=== PATIENT | female | born 1995 | race Hispanic/Latino ===

== ENCOUNTER 2019-11-06 19:31 | Emergency (ER) | payer SELFPAY ==
[2019-11-06 22:07] LABS: Urine Blood NEGATIVE (NEG); Urine Glucose NEGATIVE (NEG); Urine Protein NEGATIVE (NEG); Urine Specific Gravity <1.005 (1.005-1.030)
--- NOTE | 2019-11-06 22:28 | ER ---
Nurse's Notes [facility] Name: Jessica Wiseman Age: 24 yrs Sex: Female : 1995 Arrival Date: 11/06/2019 Time: 19:34 Bed 30 Private MD: Diagnosis: Acute pharyngitis;Dysuria Presentation: 11/06 20:06 Presenting complaint: Patient states: she was seen at the clinic today for fever and aa1 was told that she had a positive test and is estimated about 4 weeks . States she also was told her BP was high and she has been having pain with urination x 8 days as well. Transition of care: patient was not received from another setting of care. Onset of symptoms was October 30, 2019. Risk Assessment: Do you want to hurt yourself or someone else? Patient reports no desire to harm self or others. Initial Sepsis Screen: Does the patient meet any 2 criteria? No. Patient's initial sepsis screen is negative. Does the patient have a suspected source of infection? Yes: Dysuria/Frequency/Urgency/UTI. Care prior to arrival: None. 20:06 Method Of Arrival: Ambulatory aa1 20:06 Acuity: MUSA 4 aa1 Triage Assessment: 20:11 General: Appears in no apparent distress. comfortable, Behavior is calm, cooperative, aa1 appropriate for age. Pain: Denies pain. Historical: - Allergies: 20:11 No Known Allergies; aa1 - Home Meds: 20:11 None [Active]; aa1 - PMHx: 20:11 None; aa1 - PSHx: 20:11 None; aa1 - Immunization history:: Adult Immunizations up to date. - Social history:: Smoking status: Patient/guardian denies using tobacco. - Ebola Screening: : No symptoms or risks identified at this time. Screenin:00 Abuse screen: Denies threats or abuse. Nutritional screening: No deficits noted. tr5 Tuberculosis screening: No symptoms or risk factors identified. Fall Risk None identified. Assessment: 21:00 General: Appears in no apparent distress. Behavior is calm, cooperative, appropriate tr5 for age. Pain: Denies pain. Neuro: Level of Consciousness is awake, alert, obeys commands, Oriented to person, place, time, [place] Hand are equal bilaterally Moves all extremities. Cardiovascular: Heart tones present Capillary refill < 3 seconds. Respiratory: Airway is patent Respiratory effort is even, unlabored, Respiratory pattern is regular, symmetrical. GI: No signs and/or symptoms were reported involving the gastrointestinal system. : Reports burning with urination. EENT: No signs and/or symptoms were reported regarding the EENT system. Derm: No signs and/or symptoms reported regarding the dermatologic system. Musculoskeletal: No signs and/or symptoms reported regarding the musculoskeletal system. Vital Signs: 20:11 BP 131 / 88; Pulse 97; Resp 16; Temp 98.3; Pulse Ox 100% on R/A; Weight 63.5 kg; Height aa1 5 ft. 3 in. (160.02 cm); Pain 0/10; 20:11 Body Mass Index 24.80 (63.50 kg, 160.02 cm) aa1 ED Course: 19:34 Patient arrived in ED. cf2 19:55 Dustin Holden PA is PHCP. [facility] 19:55 Jaylan Lopez MD is Attending Physician. [facility] 20:09 Triage completed. aa1 20:11 Arm band placed on right wrist. aa1 20:30 Paul Dow RN is Primary Nurse. tr5 21:00 Bed in low position. Call light in reach. Side rails up X 1. tr5 22:06 PHCP role handed off by Dustin Holden PA la 22:06 Dioni Lopez [facility]C [facility] la1 22:57 No provider procedures requiring assistance completed. Patient did not have IV access tr5 during this emergency room visit. Administered Medications: No medications were administered Outcome: 22:27 Discharge ordered by . la1 22:57 Discharged to home ambulatory. tr5 22:57 Condition: stable 22:57 Discharge instructions given to patient, Instructed on discharge instructions, follow up and referral plans. Demonstrated understanding of instructions, follow-up care. 23:11 Patient left the ED. tr5 Signatures: Anni Durand RN RN aa1 Dustin Holden PA PA Dioni Warren FNP-C FNP-[facility] HospitalPaul Mcclure RN RN tr5 Elli Anderson cf2
--- NOTE | 2019-11-06 22:29 | EDPHYS ---
Physician Documentation [facility] Name: Jessica Wiseman Age: 24 yrs Sex: Female : 1995 Arrival Date: 11/06/2019 Time: 19:34 Bed 30 Private MD: ED Physician Jaylan Lopez HPI: 11/06 20:45 This 24 yrs old Female presents to ER via Ambulatory with complaints of High jmm Blood Pressure, Fever. 20:45 The patient or guardian reports cough. Onset: The symptoms/episode began/occurred jmm gradually, 1 week(s) ago. Modifying factors: The symptoms are alleviated by nothing. the symptoms are aggravated by nothing. Associated signs and symptoms: Pertinent positives: sore throat, Pertinent negatives:. This is a 24 year old female with no chronic medical conditions that presents to the ED. Patient had a positive home test and went to clinic for confirmation. Patient had a temp of 99.4 and was advised to go to the ED for further evaluation for flu. Patient states having cough, sore throat for the past week. Patient also complains of painful urination. Denies vomiting or diarrhea. LMP 10/07/2019. Historical: - Allergies: 20:11 No Known Allergies; aa1 - Home Meds: 20:11 None [Active]; aa1 - PMHx: 20:11 None; aa1 - PSHx: 20:11 None; aa1 - Immunization history:: Adult Immunizations up to date. - Social history:: Smoking status: Patient/guardian denies using tobacco. - Ebola Screening: : No symptoms or risks identified at this time. ROS: 20:45 Constitutional: Negative for fever, chills, and weight loss, Cardiovascular: Negative jmm for chest pain, palpitations, and edema. 20:45 Abdomen/GI: Negative for abdominal pain, nausea, vomiting, diarrhea, and constipation, Back: Negative for injury and pain. 20:45 ENT: Positive for sore throat. 20:45 Respiratory: Positive for cough. 20:45 : Positive for urinary symptoms. 20:45 All other systems are negative. Exam: 20:45 Constitutional: This is a well developed, well nourished patient who is awake, alert, jmm and in no acute distress. Head/Face: atraumatic. Eyes: EOMI, no conjunctival erythema appreciated 20:45 Neck: Trachea midline, Supple Chest/axilla: Normal chest wall appearance and motion. 20:45 Respiratory: Normal respirations, no respiratory distress appreciated 20:45 ENT: TM's: are normal, Posterior pharynx: erythema, that is moderate. 20:45 Cardiovascular: Rate: normal, Rhythm: regular, Pulses: no pulse deficits are appreciated. 20:45 Respiratory: the patient does not display signs of respiratory distress, Respirations: normal, Breath sounds: are clear throughout. 20:45 Abdomen/GI: Inspection: abdomen appears normal, Bowel sounds: normal, Palpation: abdomen is soft and non-tender, in all quadrants. 20:45 Back: ROM is normal. 20:45 Musculoskeletal/extremity: ROM: intact in all extremities. 20:45 Skin: Appearance: Color: normal in color. 20:45 Neuro: Orientation: is normal, Mentation: is normal, Memory: is normal. 20:45 Psych: Behavior/mood is pleasant, cooperative. Vital Signs: 20:11 BP 131 / 88; Pulse 97; Resp 16; Temp 98.3; Pulse Ox 100% on R/A; Weight 63.5 kg; Height aa1 5 ft. 3 in. (160.02 cm); Pain 0/10; 20:11 Body Mass Index 24.80 (63.50 kg, 160.02 cm) aa1 MDM: 20:23 Patient medically screened. [facility] 21:44 Data reviewed: vital signs, nurses notes. [facility] 11/06 20:45 Order name: Flu; Complete Time: 22:27 [facility] 11/06 20:45 Order name: Strep; Complete Time: 22:27 [facility] 11/06 20:04 Order name: Urine Dipstick-Ancillary (obtain specimen); Complete Time: 21:25 [facility] 11/06 21:28 Order name: Urine Dipstick--Ancillary (enter results); Complete Time: 22:27 [facility] 11/06 21:28 Order name: Urine --Ancillary (enter results); Complete Time: 22:27 [facility] 11/06 22:28 Order name: Throat Culture [facility] 11/06 20:04 Order name: Urine Test (obtain specimen); Complete Time: 21:24 [facility] Administered Medications: No medications were administered Disposition: 11/07 04:51 Co-signature as Attending Physician, Jaylan Lopez MD I agree with the assessment and tw4 plan of care. Disposition: 11/06/19 22:27 Discharged to Home. Impression: Acute pharyngitis, Dysuria. - Condition is Stable. - Discharge Instructions: Dysuria, Pharyngitis. - Prescriptions for Augmentin 875- 125 mg Oral Tablet - take 1 tablet by ORAL route every 12 hours for 10 days; 20 tablet. - Medication Reconciliation Form, Thank You Letter, Antibiotic Education form. - Follow up: Private Physician; When: 2 - 3 days; Reason: Recheck today's complaints, Continuance of care, Re-evaluation by your physician. - Problem is new. - Symptoms are unchanged. Signatures: Dispatcher [employer] Anni Hernandez, RN RN aa1 Dustin Holden PA PA jmm Attema, Lee, DISPENSING LEAD-C DISPENSING LEAD-Cla1 Jaylan Lopez MD MD tw4 Paul Dow RN RN tr5 Corrections: (The following items were deleted from the chart) 11/06 23:11 22:27 11/06/2019 22:27 Discharged to Home. Impression: Acute pharyngitis; Dysuria. tr5 Condition is Stable. Discharge Instructions: Dysuria, Pharyngitis. Prescriptions for Augmentin 875-125 mg Oral Tablet - take 1 tablet by ORAL route every 12 hours for 10 days; 20 tablet. and Forms are Medication Reconciliation Form, Thank You Letter, Antibiotic Education, Prescription Opioid Use. Follow up: Private Physician; When: 2 - 3 days; Reason: Recheck today's complaints, Continuance of care, Re-evaluation by your physician. Problem is new. Symptoms are unchanged. la1
[2019-11-07 01:50] VITALS: BP 131/88; TEMP 98.3; O2SAT 100
== END 2019-11-06 23:11 | disposition home or self-care (01) ==
LOC: ER 19:31 → EDBD 19:31 → ER 23:11
DX: J02.9 Acute pharyngitis, unspecified (principal); R30.0 Dysuria
CPT/HCPCS: 81003; 81025; 87070; 87081; 87804; 99281

== ENCOUNTER 2020-07-03 03:34 | Inpatient (IN) | payer SELFPAY ==
[2020-07-03] MEDS ORDERED: CARBOPROST TROME 250 MCG/ML IM PRN (05:20)
[2020-07-03] MEDS ORDERED: METHYLERGONOVINE 0.2MG/ML AMP IM PRN (05:20)
[2020-07-03] MEDS ORDERED: BUTORPHANOL 1 MG/ML INJ IV PRN (05:20)
[2020-07-03] MEDS ORDERED: PROMETHAZINE INJ 25 MG/ML AMP IM PRN (05:20)
[2020-07-03] MEDS ORDERED: Ringers Lactate 1,000 ML IV PRN (05:20)
[2020-07-03 05:57] VITALS: BMI 28.3
[2020-07-03] MEDS ORDERED: Ringers Lactate 1,000 ML IV SCH (06:00)
[2020-07-03] MEDS ORDERED: OXYTOCIN/LR 20 UNIT/1,000 ML BAG IV SCH ×2 (06:00→17:00)
[2020-07-03 06:16] LABS: Urine Appearance CLEAR; Urine Bilirubin NEGATIVE (NEG); Urine Blood 1+ (NEG); Urine Color YELLOW; Urine Glucose NEGATIVE (NEG); Urine Protein NEGATIVE (NEG); Urine Urobilinogen 0.2 mg/dL (0.2-1.0)
[2020-07-03 06:18] LABS: Absolute Lymphocytes (CBC) 1.7 K/uL (0.7-4.9); Basophils % 0.3 % (0-1.3); Hematocrit 41.3 % (36.0-45.0); Lymphocytes % 14.9 % (15.3-44.8); MPV 9.6 fL (7.6-11.3); RBC Red Blood Cell Count 4.68 M/uL (3.86-4.86)
[2020-07-03 06:23] LABS: Urine Microscopic Reflex ORDER UMIC
[2020-07-03 06:45] LABS: Urine Bacteria 20-50 /HPF (<20); Urine Culture Reflex Order REFLEXED; Urine RBC <5 /HPF (NONE SEEN)
[2020-07-03] MEDS ORDERED: FENTANYL CITR 100 MCG/2 ML IV ONE (08:21)
[2020-07-03] MEDS ORDERED: FENTANYL/BUPIVACAINE/NS/PF 200 MCG/100 ML BAG EP PRN (08:21)
[2020-07-03] MEDS ORDERED: BUPIVACAINE 0.25% PF 10 ML VIAL IV PRN (08:21)
[2020-07-03] MEDS ORDERED: Ringers Lactate 1,000 ML IV ONE ×2 (09:49→11:15)
[2020-07-03] MEDS ORDERED: LIDOCAINE 1% MPF 30 ML VIAL ONE (14:12)
[2020-07-03] MEDS ORDERED: MEPERIDINE HCL 25 MG/ML SYR ONE (16:23)
[2020-07-03] MEDS ORDERED: ACETAMINOPHEN 500 MG TAB PO PRN (16:30)
[2020-07-03] MEDS ORDERED: DOCUSATE NA/SENNA CONC 1 TAB PO PRN (16:30)
[2020-07-03] MEDS ORDERED: IBUPROFEN 200 MG TAB PO PRN (16:30)
[2020-07-03] MEDS ORDERED: Oxycodone HCl/Acetaminophen 1 TAB TAB PO PRN ×2 (16:30)
[2020-07-03] MEDS ORDERED: BISACODYL 10 MG RECTAL SUPP RECT PRN (16:30)
[2020-07-03] MEDS ORDERED: DIPHENHYDRAMINE 25 MG TAB/CAP PO PRN (16:30)
--- NOTE | 2020-07-04 01:26 | OP ---
Surgeon: Avtar Leach MD A 24-year-old primigravida, 38 weeks 5 days, came in early labor. Light Pitocin augmentation during the labor. Stadol 1 mg IV, Phenergan 25 mg IM, followed by epidural anesthesia at approximately 3 to 3.5 cm. Second stage of approximately 1 hour. Spontaneous vaginal delivery of an estimated 6 pound s male , Apgars 9 and 9. Second-degree laceration repaired with 2-0 chromic under local infilt ration, although epidural was still apparently effective. Schultze delivery of the placenta, inspect ed and noted to be intact and normal. 350 cc blood loss. Rh positive, immune to rubella. Negative beta-strep screen. Final Diagnoses: Term intrauterine at 38 weeks 5 days, spontaneous labor, vaginal delivery , epidural anesthesia. DAMIAN/CANDELARIA Voice ID: [id number] Report ID: [id number]
[2020-07-04 17:32] VITALS: BP 121/73; TEMP 96.7
[2020-07-04] MEDS ORDERED: Tdap (Diph,Pertuss(Acell),Tet Vac) 0.5 ML SYR IMVAC ONE (17:55)
--- NOTE | 2020-07-05 03:26 | DS ---
Hospital Course: Jessica Lyn is a 24-year-old primigravida, 38 weeks 5 days, came in an active lab or, delivered a 6 pounds 11 ounces male infant, Apgars 9 and 9. After approximately [address] age, had epidural anesthesia, but local infiltration for repair of second-degree laceration, 2-0 methods study analyst vincent. Schultze delivery of the placenta, which inspected and noted to be intact and normal. 350 mL b lood loss or less. Rh positive. Immune to Rubella. Negative beta strep screen. Offered Tdap durin g the . No post epidural problems. The patient will be dismissed this afternoon to report back to my office in 6 weeks for followup. To report any temperature elevation of 100 degrees or gre ater, severe pain, heavy bleeding, or any other type of abnormalities. Dismissed with tramadol for a nalgesia, although she may elect to use Motrin instead. Final Diagnoses: Term intrauterine at 38 weeks 5 days, spontaneous delivery, epidural anes thesia. DAMIAN/CANDELARIA Voice ID: [id number] Report ID: [id number]
[2020-07-05 05:54] LABS: RPR (Rapid Plasma Reagin) NON-REACT (NON-REACT)
--- NOTE | 2020-07-05 15:19 | CON ---
A 24-year-old, primigravida, 38 weeks 4 days, rolanda every 2 to 4 minutes. This made no change in 2 hours. Cervix is fingertip. Baby is vertex. Vitals are all normal. She has an appointment at 10 o'clock in my office. We have decided to send her home. When she will come back, contractions i ntensify, rupture of membranes, or any other problems. Otherwise she can come to my office on or if she chooses not to and does not go into firm labor, she will come back to the office on Sunday. DAMIAN/CANDELARIA Voice ID: [id number] Report ID: [id number]
--- NOTE | 2020-07-05 15:34 | PREOPHP ---
Date of Admission: 07/03/2020 History Of Present Illness: A 24-year-old primigravida. Followed antepartum without complications. Now 38 weeks 5 days, came in yesterday for labor assessment. Came back this morning for labor asses sment. Had made cervical change. She is now 2.5 cm, 80% effaced, vertex, -1 station, rupture of mem branes, clear fluid, slight bloody show. FHTs normal. She has had 1 dose of Stadol. Contractions h ave spaced out. We will start light Pitocin augmentation. Labor talk given. Anticipate delivery so metime later today. DAMIAN/CANDELARIA Voice ID: [id number]
== END 2020-07-04 19:20 | disposition home or self-care (01) | DRG 807 ==
LOC: L&D 03:34 → 2ND-WC 05:05
PROVIDERS: ADMIT Specialist; ATTEND Specialist
PROC: 10E0XZZ Delivery of Products of Conception, External Approach (ICD-10-PCS; principal; 2020-07-03)
PROC: 0KQM0ZZ Repair Perineum Muscle, Open Approach (ICD-10-PCS; 2020-07-03)
PROC: 10907ZC Drainage of Amniotic Fluid, Therapeutic from Products of Conception, Via Natural or Artificial Opening (ICD-10-PCS; 2020-07-03)
DX: O70.1 Second degree perineal laceration during delivery (principal); Z37.0 Single live birth; Z3A.38 38 weeks gestation of pregnancy; Z23 Encounter for immunization
CPT/HCPCS: 36415; 81003; 81015; 85025; 86592; 86850; 86900; 86901; 87086; 87088; 87340; 90471; 90715; J0595; J2175; J2210; J2550; J2590; J3010; J7120